=== PATIENT | female | born 1975 | race African-American/Black ===

== ENCOUNTER 2018-05-25 10:24 | Inpatient (IN) | payer BC, OTHER ==
[2018-05-24 09:00] VITALS: BMI 40.1
[2018-05-25] MEDS ORDERED: MIDAZOLAM HCL 2 MG/2 ML SINGLE DOSE VIAL ONE (13:10)
[2018-05-25] MEDS ORDERED: ROCURONIUM BROMIDE 50 MG/5 ML VIAL ONE (13:11)
[2018-05-25] MEDS ORDERED: PROPOFOL 20 ML ONE (13:11)
[2018-05-25] MEDS ORDERED: ceFAZolin SODIUM 1 GM VIAL IVPB ONE (13:30)
--- NOTE | 2018-05-25 13:43 | HP ---
DATE OF ADMISSION: 05/25/2018 CHIEF COMPLAINT: Morbid obesity. HISTORY OF PRESENT ILLNESS: The patient is a 43-year-old woman with a history of morbid obesity for many years despite multiple attempts at dietary weight loss. She received evaluation and clearance by nutrition psychology prior to being scheduled for elective sleeve gastrectomy surgery. PAST MEDICAL HISTORY: Significant for iron-deficiency anemia. PAST SURGICAL HISTORY: Laparoscopy in the pelvis and also liposuction on the abdomen and also in the back. MEDICATIONS: Include vitamin D and also ferrous sulfate. ALLERGIES: She has no known allergies. REVIEW OF SYSTEMS: General: Within normal limits. Cardiovascular: Within normal limits. Pulmonary: Within normal limits. Gastrointestinal: Within normal limits. Musculoskeletal: Within normal limits. Neuromuscular: Within normal limits. PHYSICAL EXAMINATION: General: A 43-year-old woman awake and alert in no acute distress. HEENT: No masses palpated. Lungs: Clear sounds bilaterally. Heart: Regular sinus rhythm. Abdomen: Positive for obesity. It is soft, nontender on palpation in all quadrants. Extremities: No swelling. No edema. IMPRESSION: Morbid obesity. PLAN: Surgery for laparoscopic vertical sleeve gastrectomy, possible open vertical sleeve gastrectomy. Ana [id number]
[2018-05-25] MEDS ORDERED: BUPIVACAINE HCL/PF 0.5% (5MG/ML) 10 ML VIAL ONE (14:28)
[2018-05-25] MEDS ORDERED: LIDOCAINE HCL/PF 2% SDV 5ML VIAL ONE (14:51)
[2018-05-25] MEDS ORDERED: ceFAZolin SODIUM 1 GM VIAL ONE (14:51)
[2018-05-25] MEDS ORDERED: NEOSTIGMINE METHYLSULFATE 0.5 MG/1 ML - 10 ML MDV ONE ×2 (14:51→14:53)
[2018-05-25] MEDS ORDERED: DEXAMETHASONE SOD PHOSPHATE 4 MG/1 ML VIAL ONE (14:51)
[2018-05-25] MEDS ORDERED: GLYCOPYRROLATE 0.2 MG/1 ML VIAL ONE (14:51)
[2018-05-25] MEDS ORDERED: ONDANSETRON 4 MG/2 ML VIAL ONE (14:51)
[2018-05-25] MEDS ORDERED: SODIUM CHLORIDE 1,000 ML IV SCH (15:00)
[2018-05-25] MEDS ORDERED: MORPHINE SULFATE 2 MG/ML VIAL IVPUSH PRN (15:02)
--- NOTE | 2018-05-25 15:05 | OP ---
Operative Note - Note: Operative Date: 05/25/18 Pre-Operative Diagnosis: Morbid Obesity Operation: Laparoscopic Vertical SLeeve Gastrectomy. Diagnostic Laparoscopy Findings: Greater curve sleeve gastrectomy performed with #[address] Post-Operative Diagnosis: Same as Pre-op Surgeon: Russell Escobedo Material Flow Engineer: Janneth Smith Anesthesia: General Specimens Removed: Greater curve of stomach Estimated Blood Loss (mls): 30 Operative Report Dictated: Yes
[2018-05-25] MEDS ORDERED: ACETAMINOPHEN 1000 MG/100 ML VIAL (NON FORMULARY) IVPB ONE (15:30)
[2018-05-25] MEDS: ONDANSETRON 4 MG/2 ML VIAL IVPUSH PRN (15:30)
[2018-05-25] MEDS: METOCLOPRAMIDE HCL INJECTION 10 MG/2 ML VIAL IVPUSH SCH ×2 (15:30→17:41)
[2018-05-25] MEDS ORDERED: ACETAMINOPHEN INJECTION 100 ML IVPB ONE (15:33)
--- NOTE | 2018-05-25 15:43 | SURG ---
Surgery Work Checker Note Work Checker: Janneth Smith PA-C Date of Service: 05/25/18 Diagnosis: morbid obesity Procedure: Laparoscopic Vertical SLeeve Gastrectomy. Diagnostic Laparoscopy I was present for the entirety of the operative procedure. For further detail, please refer to operative report. Visit type - Case Type Case Type: Scheduled - Emergency Emergency Visit: No - New patient This patient is new to me today: Yes Date on this admission: 05/25/18
[2018-05-25 16:46] LABS: HEMATOCRIT 36.3 % (32.4-45.2); HEMOGLOBIN 11.1 GM/dL (10.7-15.3); MCH 22.4 pg (25.7-33.7); MCHC 30.5 g/dl (32.0-36.0); MEAN CELL VOLUME 73.5 fl (80-96); MEAN PLT VOLUME 9.2 fl (7.5-11.1); PLATELET COUNT 273 K/MM3 (134-434); RBC 4.93 M/mm3 (3.60-5.2); RDW 15.9 % (11.6-15.6); WHITE BLOOD COUNT 14.9 K/mm3 (4.0-10.0)
[2018-05-25 17:09] LABS: ALBUMIN 3.1 g/dl (3.4-5.0); ALK PHOS 79 U/L (45-117); ANION GAP 9 MMOL/L (8-16); BILIRUBIN,TOTAL 0.3 mg/dL (0.2-1); BLOOD UREA NITROGEN 11 mg/dL (7-18); CALCIUM 8.4 mg/dL (8.5-10.1); CHLORIDE 104 mmol/L (98-107); CO2 27 mmol/L (21-32); CREATININE 0.8 mg/dL (0.55-1.3); GLUCOSE,RANDOM 149 mg/dL (74-106); POTASSIUM 3.3 mmol/L (3.5-5.1); SGOT/AST 19 U/L (15-37); SGPT/ALT 25 U/L (13-61); SODIUM 140 mmol/L (136-145); TOT PROT 7.1 g/dl (6.4-8.2)
[2018-05-25] MEDS: KCL 10 MEQ IVPB 10 MEQ/100 ML INFUS.BAG IVPB SCH ×2 (21:13→23:44)
[2018-05-25] MEDS: FAMOTIDINE 20 MG/50 ML IVPB 20 MG/50 ML MG IVPB SCH (21:17)
[2018-05-25] MEDS: ENOXAPARIN NA (PORCINE) 40 MG/0.4 ML DISP.SYRIN SQ SCH (21:18)
[2018-05-26] MEDS: METOCLOPRAMIDE HCL INJECTION 10 MG/2 ML VIAL IVPUSH SCH ×2 (03:23→09:59)
[2018-05-26] MEDS: ONDANSETRON 4 MG/2 ML VIAL IVPUSH PRN (03:40)
--- NOTE | 2018-05-26 06:26 | OP ---
DATE OF OPERATION: 05/25/2018 PREOPERATIVE DIAGNOSIS: Morbid obesity. POSTOPERATIVE DIAGNOSIS: Morbid obesity. PROCEDURE PERFORMED: 1. Laparoscopic vertical sleeve gastrectomy. 2. Diagnostic laparoscopy. OPERATING SURGEON: Russell Escobedo MD PORT CAPTAIN: LILIA Winters ANESTHESIA: General. OPERATIVE PROCEDURE: The patient was brought into the operating room and placed on the OR table in supine position. All precautions were taken initially including padding for the back and the feet, and Venodyne boots were placed on both lower extremities. At that point, the abdomen was prepped and draped in the usual manner. A Veress needle was placed in the left upper quadrant, and a pneumoperitoneum was established. A No. 12 bladeless trocar was placed to the left upper quadrant. Through that trocar, a laparoscopic camera was placed. Under direct vision, No. 15 bladeless trocar was placed in midline in a supraumbilical position followed by a No. 5 bladeless trocar in the right upper quadrant and a No. 5 bladeless trocar below the left costal margin. A Tobi liver retractor was then placed to the epigastrium to retract the left lobe of the liver. The patient was then placed in a 20-degree reverse Trendelenburg position by Anesthesia. The pylorus was noted on the distal stomach, and 6 cm was measured proximally from there. Here on the greater curve, the operating surgeon lifted the stomach toward the anterior abdominal wall as the physicians assistant surgeon retracted the gastrocolic ligament inferiorly. The LigaSure device was used to dissect the gastrocolic ligament off the greater curve of the stomach. This continued in a superior and vertical direction including dissecting the short gastric vessels off the greater curve until the final short gastric vessel between the superior pole of the spleen and proximal fundus was divided. At this juncture, Anesthesia advanced a No. 40 bougie. With the bougie held along the lesser curve by the operating surgeon, a series of stephanie were performed with the first 2 being black load stephanie 6 cm in length along the bougie. This was followed by a series of purple stephanie also 6 cm in length and also along the bougie. When the final staple was fired in the left upper quadrant, the greater curve was now completely detached from the lesser curve. It should be noted that prior to firing each staple, both the anterior and posterior sloan were checked that they were equal, and then the area of the esophagogastric junction approximately 1 to 1-1/2 cm of serosa remained on the anterior posterior surface. At this juncture, saline was placed around the staple line, and Anesthesia inserted air into the bougie. This showed that the entire stomach distended. No signs of obstruction and no leaks were noted. At this point, the resected greater curve was removed with No. 15 trocar site and sent off the field as a specimen to Pathology. The bougie was then removed by Anesthesia from the stomach, and under direct vision, the No. 15 trocar site was closed with endoclosure device with an internal hernia to prevent bleeding. Under direct vision, all trocars were removed, and pneumoperitoneum was released. All trocar sites then received 0.25% Marcaine. The midline larger trocar site was closed with 3-0 Vicryl in the subcutaneous tissue, and all trocar sites were closed with 4-0 Biosyn in a subcuticular fashion. Dressings were applied. The patient was awoken from anesthesia and transferred out of the operating room to the recovery room in stable condition. Expected blood loss was 30 mL. Ana [id number]
[2018-05-26 07:44] LABS: HEMATOCRIT 34.5 % (32.4-45.2); HEMOGLOBIN 10.7 GM/dL (10.7-15.3); MCH 22.5 pg (25.7-33.7); MEAN CELL VOLUME 72.7 fl (80-96); MEAN PLT VOLUME 9.4 fl (7.5-11.1); PLATELET COUNT 244 K/MM3 (134-434); RBC 4.75 M/mm3 (3.60-5.2); RDW 15.4 % (11.6-15.6); WHITE BLOOD COUNT 17.2 K/mm3 (4.0-10.0)
[2018-05-26 08:54] LABS: ALBUMIN 2.9 g/dl (3.4-5.0); ALK PHOS 73 U/L (45-117); ANION GAP 10 MMOL/L (8-16); BILIRUBIN,TOTAL 0.3 mg/dL (0.2-1); BLOOD UREA NITROGEN 10 mg/dL (7-18); CALCIUM 7.9 mg/dL (8.5-10.1); CHLORIDE 105 mmol/L (98-107); CO2 26 mmol/L (21-32); CREATININE 0.6 mg/dL (0.55-1.3); GLUCOSE,RANDOM 82 mg/dL (74-106); POTASSIUM 3.9 mmol/L (3.5-5.1); SGOT/AST 13 U/L (15-37); SGPT/ALT 20 U/L (13-61); SODIUM 141 mmol/L (136-145); TOT PROT 6.7 g/dl (6.4-8.2)
[2018-05-26] MEDS: ENOXAPARIN NA (PORCINE) 40 MG/0.4 ML DISP.SYRIN SQ SCH (10:02)
[2018-05-26] MEDS: FAMOTIDINE 20 MG/50 ML IVPB 20 MG/50 ML MG IVPB SCH (10:04)
[2018-05-26 13:37] VITALS: BP 140/70; PULSE 67; TEMP 98.7
--- NOTE | 2018-05-26 14:26 | PN ---
Progress Note (short form) - Note Progress Note: POD#1 Afebrile; VSS Pt doing well Had episode of vomiting this AM during UGI Now feels better UGI- no leak, no obstruction Pt tolerating 1-2 oz of PO juice well P/E- Abd- all trocar sites clean,dry Ext- no swelling, no pain WBC-17.2 (slight increase, but pt afebrile) H/H-10.7/34.5 (stable) K-3.9 P- PO clear liquids- 2 oz PO 4-5 times per day today, then increase to 3 oz PO 4-5 times per day tomorrow D/C pt home F/U in 5 days
--- NOTE | 2018-05-29 18:25 | PATH ---
Surgical Pathology Report Patient Name: KALINA WOLFF [facility]. Rec. #: [id number] /Age/Gender: 1975 (Age: 43) / F Account: [id number] Location: 4 W TELEMETRY U Taken: 05/25/2018 Received: 05/28/2018 Reported: 05/29/2018 Physicians: Russell Escobedo M.D. Specimen(s) Received GREATER CURVATURE STOMACH Clinical History Morbid obesity Final Diagnosis GREATER CURVATURE STOMACH, LAPAROSCOPIC VERTICAL SLEEVE GASTRECTOMY: SEGMENT OF STOMACH SHOWING MILD CHRONIC GASTRITIS. IMMUNOSTAINING IS NEGATIVE FOR H. PYLORI ORGANISMS. Electronically Signed Cammie Hunt M.D. Gross Description Received in formalin, labeled "greater curvature of stomach," is a 67 gram, 16.0 x 3 7 x 3.1 cm. portion of stomach with a stapled margin of resection. The serosa is hazel-alcaraz with minimal attached fat. The mucosa is hazel-pink with focally flattened folds. No mucosal masses are identified. Maintenance Engineer [employer] sections are submitted in one cassette. /05/28/2018 saudi/05/28/2018
== END 2018-05-26 15:52 | disposition home or self-care (01) | DRG 621 ==
LOC: JSAMEDAYSX 12:07 → J4W 17:00
PROVIDERS: ADMIT Surgery; ATTEND Surgery
PROC: 0WJP4ZZ Inspection of Gastrointestinal Tract, Percutaneous Endoscopic Approach (ICD-10-PCS; 2018-05-25)
PROC: 0DB64Z3 Excision of Stomach, Percutaneous Endoscopic Approach, Vertical (ICD-10-PCS; principal; 2018-05-25 12:30)
DX: E66.01 Morbid (severe) obesity due to excess calories (principal); Z68.39 Body mass index [BMI] 39.0-39.9, adult
CPT/HCPCS: 36415; 74241-TC-FY; 80053; 85027; 88305-TC; 94760; J0131

== ENCOUNTER 2018-06-10 20:23 | Emergency (ER) | payer BC, OTHER ==
[2018-06-10 20:29] VITALS: BMI 37.3
[2018-06-10] MEDS ORDERED: ASPIRIN 81 MG CHEWABLE TABLETS PO ONE (20:59)
[2018-06-10] MEDS ORDERED: ASPIRIN 81 MG CHEWABLE TABLETS ONE (21:08)
--- NOTE | 2018-06-10 21:29 | PDOC ---
History of Present Illness - General Chief Complaint: Irregular Heart Beat Stated Complaint: rapid heartbeat Time Seen by Provider: 06/10/18 20:45 History Source: Patient Exam Limitations: No Limitations - History of Present Illness Initial Comments: 06/10/18 21:19 Patient is a 43F with history of recent gastric sleeve surgery, obesity here today complaining of intermittent chest pain for the past three days. Patient describes her pain as a substernal pressure that worsens with exertion and improves with rest. Denies fevers, chills, nausea, vomiting. Pain is not reproducible with movement or respiration. Denies leg swelling, recent blood clots. Patient states that she has had gastritis, but this doesn't feel like this. Patient states that she also feels like her heart is racing. Denies oral or facial tingling with these episodes. Patient states that she had stress test, cardiology and pulmonary clearance before her surgery. Past History - Past Medical History Allergies/Adverse Reactions: Allergies Allergy/AdvReac Type Severity Reaction Status Date / Time No Known Allergies Allergy Verified 06/10/18 20:30 Home Medications: Ambulatory Orders Famotidine [Pepcid -] 20 mg PO BID #60 tablet 05/25/18 Cyanocobalamin (Vitamin B-12) [Vitamin B-12] 1,000 mcg PO DAILY 06/10/18 Anemia: Yes Diabetes: No - Suicide/Smoking/Psychosocial Hx Smoking History: Never smoked Have you smoked in the past 12 months: No Information on smoking cessation initiated: No Hx Alcohol Use: No Drug/Substance Use Hx: No Substance Use Type: None Hx Substance Use Treatment: No Review of Systems - Review of Systems Comments:: 06/10/18 21:43 GENERAL/CONSTITUTIONAL: No fever or chills. No weakness. HEAD, EYES, EARS, NOSE AND THROAT: No change in vision. No sore throat. CARDIOVASCULAR: +chest pain +shortness of breath RESPIRATORY: No cough, wheezing, or hemoptysis. GASTROINTESTINAL: No nausea, vomiting, diarrhea or constipation. GENITOURINARY: No dysuria, frequency, or change in urination. MUSCULOSKELETAL: No joint or muscle swelling or pain. No neck or back pain. SKIN: No rash NEUROLOGIC: No headache, vertigo, loss of consciousness, or change in strength/ sensation. ENDOCRINE: No increased thirst. No abnormal weight change HEMATOLOGIC/LYMPHATIC: No anemia, easy bleeding, or history of blood clots. ALLERGIC/IMMUNOLOGIC: No hives or skin allergy. *Physical Exam - Vital Signs Last Vital Signs Temp Pulse Resp BP Pulse Ox 97.6 F 82 16 113/68 100 06/10/18 20:26 06/10/18 20:26 06/10/18 20:26 06/10/18 20:26 06/10/18 20:26 - Physical Exam Comments: 06/10/18 21:44 GENERAL: Awake, alert, and fully oriented, in no acute distress HEAD: No signs of trauma, normocephalic, atraumatic EYES: PERRLA, EOMI, sclera anicteric, conjunctiva clear ENT: Auricles normal inspection, hearing grossly normal, nares patent, oropharynx clear without exudates. Moist mucosa NECK: Normal ROM, supple, no lymphadenopathy, JVD, or masses LUNGS: No distress, speaks full sentences, clear to auscultation bilaterally HEART: Regular rate and rhythm, normal S1 and S2, no murmurs, rubs or gallops, peripheral pulses normal and equal bilaterally. ABDOMEN: Soft, nontender, normoactive bowel sounds. No guarding, no rebound. No masses. Several well healing abdominal scars EXTREMITIES: Normal inspection, Normal range of motion, no edema. No clubbing or cyanosis. NEUROLOGICAL: Cranial nerves II through XII grossly intact. Normal speech, normal gait, no focal sensorimotor deficits SKIN: Warm, Dry, normal turgor, no rashes or lesions noted. Heart Score/ECG Review - History History: Slightly suspicious - Electrocardiogram EKG: Non specific repolarization disturbance - Age Age: </= 45 - Risk Factors Risk Factors Heart Score: No Hx Hypercholesterolemia, No Hx Hypertension, No Hx Diabetes, No Smoking History, Yes Hx Obesity Based on the list above the patient has:: 1-2 risk factors - Troponin Troponin: </= normal limit - Score Heart Score - Total: 2 ED Treatment Course - LABORATORY CBC & Chemistry Diagram: 06/10/18 21:25 06/10/18 21:25 - RADIOLOGY Radiology Studies Ordered: Category Date Time Status CHEST PA & LAT [RAD] Stat Radiology 06/10/18 20:59 Ordered Medical Decision Making - Medical Decision Making 06/10/18 21:45 Patient is a 43F with history of recent gastric sleeve here today with chest pain. Vitals normal and stable. DDx includes, but is not limited to: ACS, arrhythmia, PE. Cannot PERC, Low Risk Well's. Will d-dimer. EKG shows normal sinus rhythm with rate of 79. No st elevations/depressions. Normal axis. normal intervals. Diffusely flattened t waves, t wave inversions in III, aVF. 06/11/18 00:52 D-dimer elevated. CBC normal. Serum preg normal. CMP reassuring. CTA ordered CTA negative for PE, other pathology. Patient advised of results, reports that she is currently pain free. Uncertain etiology of chest pain at this time, but patient will follow up with outpatient cardiology. Safe for discharge. *DC/Admit/Observation/Transfer Diagnosis at time of Disposition: Chest pain - Discharge Dispostion Disposition: HOME Condition at time of disposition: Good Decision to Admit order: No - Referrals Referrals: Russell Escobedo MD [Primary Care Provider] - - Patient Instructions Printed Discharge Instructions: DI for Arrhythmias, DI for Chest Pain Additional Instructions: Please follow up with your primary care doctor and field test engineer. Please return if you have any new, worsening or concerning symptoms, especially increasing pain, fever and shortness of breath. - Post Discharge Activity
[2018-06-10 21:37] LABS: BASO % 0.8 % (0-2.0); EOS % 1.3 % (0-4.5); HEMATOCRIT 36.6 % (32.4-45.2); HEMOGLOBIN 11.6 GM/dL (10.7-15.3); LYMPH % 42.1 % (8-40); MCH 23.2 pg (25.7-33.7); MCHC 31.7 g/dl (32.0-36.0); MEAN CELL VOLUME 73.1 fl (80-96); MEAN PLT VOLUME 9.7 fl (7.5-11.1); MONO % 8.2 % (3.8-10.2); NEUT % 47.6 % (42.8-82.8); PLATELET COUNT 260 K/MM3 (134-434); RBC 5.01 M/mm3 (3.60-5.2); RDW 15.3 % (11.6-15.6); WHITE BLOOD COUNT 6.3 K/mm3 (4.0-10.0)
[2018-06-10 21:50] LABS: INR 1.23 (0.83-1.09); PROTHROMBIN TIME (PATIENT) 14.6 SEC (9.7-13.0)
[2018-06-10 22:14] LABS: ALBUMIN 3.3 g/dl (3.4-5.0); ALK PHOS 74 U/L (45-117); ANION GAP 9 MMOL/L (8-16); BILIRUBIN,TOTAL 0.3 mg/dL (0.2-1); BLOOD UREA NITROGEN 11 mg/dL (7-18); CALCIUM 8.5 mg/dL (8.5-10.1); CHLORIDE 106 mmol/L (98-107); CO2 27 mmol/L (21-32); CREATININE 0.7 mg/dL (0.55-1.3); GLUCOSE,RANDOM 77 mg/dL (74-106); SGPT/ALT 15 U/L (13-61); SODIUM 142 mmol/L (136-145); TOT PROT 7.4 g/dl (6.4-8.2)
[2018-06-10 22:15] LABS: MAGNESIUM 1.9 mg/dL (1.8-2.4); POTASSIUM 4.1 mmol/L (3.5-5.1); SGOT/AST 14 U/L (15-37)
--- NOTE | 2018-06-10 22:36 | PDOC ---
Attending Attestation - Resident Resident Name: Adrian Almeida - ED Attending Attestation I have performed the following: I have examined & evaluated the patient, The case was reviewed & discussed with the resident, I agree w/resident's findings & plan - HPI HPI: 06/10/18 22:35 Jamel 43YOF, gastric sleeve surgery approx. 2 weeks ago presenting with substernal pressure for the past four days. Patient states the substernal pressure is intermittent, alleviated with rest, and was concerned the gastric sleeve was leaking. Patient states this does not feel like her typical GERD. Pressure substernal., monday, intermittent. Concerned her gastric sleeve is leaking. but tolerating PO intake, no other GI sx. Patient denies any history of blood clots. - Physicial Exam PE: 06/10/18 22:35 NAD, well appearing, PERRL, EOMI, MMM, nl conjunctiva, anicteric; neck supple. lungs clear, RRR, abdomen soft nontender. DUTTA x4, no focal neuro deficits. No peripheral edema. normal color for ethnicity, WWP. - Medical Decision Making 06/10/18 22:36 43F with history of recent gastric sleeve surgery, obesity here today complaining of intermittent chest pain for the past three days. Vital signs reviewed, wnl. Prior notes reviewed, including admissions, discharges and consultations. laboratory results and imaging reviewed, basic labs and lytes wnl, neg preg test. Cardiac panel_neg trop, less likely cardiac.. Elevated dimer, will need CTA to r /o PE EKG normal sinus rhythm, no interval abnormalities, narrow QRS, ST and T wave segments and morphology normal. Nonspecific T wave abnormalities ED course: no acute events, remained stable and well appearing. abdomen soft, NTND, comfortable in bed and no distress. Heart score 2, low risk category, low suspicion for ACS with neg trop and low pretest probability. CT Angio chest neg for PE, normal lungs; neg trop, less likely cardiopulmonary Dispo: I discussed the physical exam findings, ancillary test results and final diagnoses with the patient. I answered all of the patient's questions. The patient was satisfied with the care received and felt comfortable with the discharge plan and treatment plan. The patient will return to the Emergency Department with any new, persistent or worsening symptoms. 06/11/18 01:06
[2018-06-11 01:06] VITALS: BP 119/75; PULSE 74; TEMP 98.2
--- NOTE | 2018-06-11 10:46 | EKG ---
Test Reason : Blood Pressure : / mmHG Vent. Rate : 079 BPM Atrial Rate : 079 BPM P-R Int : 152 ms QRS Dur : 072 ms QT Int : 378 ms P-R-T Axes : 057 030 013 degrees QTc Int : 433 ms NORMAL SINUS RHYTHM LOW VOLTAGE QRS NONSPECIFIC T WAVE ABNORMALITY ABNORMAL ECG WHEN COMPARED WITH ECG OF 29-MAR-2018 12:37, NO SIGNIFICANT CHANGE WAS FOUND Confirmed by DAVEY DAVILA MD ([id number]) on 06/11/2018 10:46:00 AM Referred By: Confirmed By:DAVEY DAVILA MD
== END 2018-06-11 01:10 | disposition home or self-care (01) ==
LOC: JER 20:23
DX: R07.9 Chest pain, unspecified (principal); Z98.84 Bariatric surgery status
CPT/HCPCS: 36415; 71275-TC; 80053; 82550; 83735; 84484; 84703; 85025; 85379; 85610; 93005; 93010; 99284-25